=== PATIENT | female | born 1965 | race African-American/Black ===

== ENCOUNTER 2022-07-10 07:47 | Outpatient (CLI) | payer OTHER ==
[~2022-07-10 07:47] MED LIST: ALPR0.25 PO; NAPR250T PO; PROP10TA10 PO
== END 2022-07-10 20:44 | disposition home or self-care (01) ==
LOC: SCT 07:47
PROVIDERS: ATTEND Otolaryngology
DX: R22.1 Localized swelling, mass and lump, neck (principal)
CPT/HCPCS: 70491; 82565; 84520; 36415; 76376; Q9967 ×2